=== PATIENT | female | born 1940 | race African-American/Black ===

== ENCOUNTER 2017-03-13 05:30 | Emergency (ER) | payer MEDICARE ==
[2017-03-13] MEDS ORDERED: SODIUM CHLORIDE 0.9% (FLUSH) 10 ML SYG IV PRN (05:34)
[2017-03-13] MEDS ORDERED: ONDANSETRON INJ 4 MG/2 ML VIAL IV ONE (05:34)
--- NOTE | 2017-03-13 06:00 | RAD ---
Clinical History : desaturation , MAIN Exam : Portable AP view of the chest 03/13/2017 5:34 AM CDT Comparisons : none Findings : There is a tracheostomy with its tip at the T2 level. There is mild peribronchial thickening throughout the lungs bilaterally with left perihilar airspace opacity. There are defibrillator pads overlying the right chest. The heart is normal in size. The mediastinal contours are normal in appearance. The thoracic spine is age appropriate. The shoulders are unremarkable. Limited evaluation of the upper abdomen demonstrates no gross abnormalities. Impression: 1. Peribronchial thickening with left perihilar airspace opacity, likely representing infectious process. 2. Tracheostomy. Electronically signed by: Kailey Maurer MD 03/13/2017 6:00 AM CDT
--- NOTE | 2017-03-13 06:11 | ED.PDOC ---
History of Present Illness - General Chief Complaint: Respiratory Problem Stated Complaint: DECREASED O2 SATS Time Seen by Provider: 03/13/17 05:33 Source: RN notes reviewed, Vital Signs reviewed, EMS Exam Limitations: clinical condition - History of Present Illness Initial Comments: Patient is a 76 y/o female trach patient on assisted ventilation. The staff at the correction turned her over and Patient desatted. They immediately started CPR without checking for a pulse. When EMS arrived, they noted that the AED was saying do not touch patient, however they were doing CPR. EMS advised them to stop. During their assessment, Patient had NSR on their rhythm strip and her staturations were in the 90s. The brought her to the ED for further evaluation. When Patient arrived, she was suctioned and she vomited. Timing/Duration: 1/2 hour Severity: mild Improving Factors: nothing Worsening Factors: nothing Associated Symptoms: other - unable to assess due to Patient being on the vent and does not speak. Allergies/Adverse Reactions: Allergies Aspirin Adverse Reaction (Verified 03/13/17 05:42) Iodine Adverse Reaction (Verified 03/13/17 05:42) Review of Systems - Review of Systems Unable to Obtain Due To: clinical condition Past Medical History (General) - Patient Medical History Hx of COPD: Yes Hx Congestive Heart Failure: Yes Hx Hypertension: Yes - Vaccination History Hx Tetanus, Diphtheria Vaccination: - UNK Hx Influenza Vaccination: - UNK Hx Pneumococcal Vaccination: - UNK - Social History Hx Alcohol Use: - UNK Hx Substance Use: - UNK - Activities of Daily Living Group Home/Assisted Living (if applicable):: [facility] - Female History Patient is a Female of Child Bearing Age (10 -59 yrs old): No Family Medical History - Family History Mother Family History: Unknown Physical Exam - Physical Exam General Appearance: Alert, Comfortable, No apparent distress Eye Exam: bilateral normal Respiratory: lungs clear, normal breath sounds, other - tracheostomy, on ventilator Cardiovascular/Chest: regular rate, rhythm, no edema, no gallop, no murmur Gastrointestinal/Abdominal: normal bowel sounds, non tender, soft, no organomegaly Neurologic: other - Patient does not respond to questions or instructions, however her eyes are open and she is looking around. This is Patient's baseline. Skin Exam: warm/dry Progress - Progress Progress: 03/13/17 06:33 As soon as x-ray was read as pneumonia, I called [facility] (at 0632) to try and get transfer since it is close to shift change. I was told to call back in 30 minutes. Therefore, I will start meropenem once her creatinine is back and blood cultures have been drawn. 03/13/17 06:46 I discussed case with Dr. Jose Ball, ED physician at [facility] after elevated d- dimer was received. We discussed the fact that her d-dimer was most likely elevated because of the pneumonia and that since she is stable, she should be able to be treated in the correction. - Results/Orders Results/Orders: 03/13/17 03/13/17 03/13/17 05:42 06:07 06:16 Temperature 97.4 F L Pulse Rate [ 83 MONITOR] Respiratory 20 20 16 Rate Respiratory 14 Rate [Volume Control Data] Blood Pressure 135/45 [Left Arm] O2 Sat by Pulse 95 96 Oximetry 03/13/17 06:47 Temperature Pulse Rate [ 86 MONITOR] Respiratory 16 Rate Respiratory Rate [Volume Control Data] Blood Pressure 130/61 [Left Arm] O2 Sat by Pulse 99 Oximetry 03/13/17 05:34 IV Care:Saline Lock per Protoc QSHIFT Telemetry .ONCE Sodium Chloride 0.9% (Flush) [Saline Flush Syringe] 10 ml IV PRN PRN EKG Assessment ONCE EKG Stat Pulse Ox Stat Pulse Oximetry Assessment DAILY 03/13/17 06:00 Capnography .ONCE Mechanical Ventilation DAILY 03/13/17 06:01 Oxygen Delivery Assessment: QSHIFT 03/13/17 06:25 BLOOD CULTURE Stat 03/13/17 06:53 BOLUS Sodium Chloride 0.9% 1000ML [Ns 1000 ml] 1,000 ml IVS ONCE Meropenem [Merrem] 1 gm Sodium Chl 0.9% 50Ml Min-Bag+ [NS 50ml MINI-BAG+] 50 ml IVPB ONCE Laboratory Results WBC 8.7 K/mm3 (4.8-10.8) 03/13/17 06:05 RBC 4.08 M/mm3 (4.20-5.40) L 03/13/17 06:05 Hgb 9.8 gm/dL (12.0-16.0) L 03/13/17 06:05 Hct 31.0 % (36.0-47.0) L 03/13/17 06:05 MCV 75.9 fl (81.0-99.0) L 03/13/17 06:05 MCH 24.0 pg (27.0-31.0) L 03/13/17 06:05 MCHC 31.7 g/dL (33.0-37.0) L 03/13/17 06:05 RDW 21.2 % (11.5-14.5) H 03/13/17 06:05 Plt Count 296 K/mm3 (130-400) 03/13/17 06:05 MPV 9.8 fl (7.40-10.4) 03/13/17 06:05 Absolute Neuts (auto) Not Reportable 03/13/17 06:05 Absolute Lymphs (auto) Not Reportable 03/13/17 06:05 Absolute Monos (auto) Not Reportable 03/13/17 06:05 Absolute Eos (auto) Not Reportable 03/13/17 06:05 Neutrophils % Not Reportable 03/13/17 06:05 Neutrophils % (Manual) 70.0 % 03/13/17 06:05 Lymphocytes % Not Reportable 03/13/17 06:05 Lymphocytes % (Manual) 23.0 % 03/13/17 06:05 Monocytes % Not Reportable 03/13/17 06:05 Monocytes % (Manual) 5.0 % 03/13/17 06:05 Eosinophils % Not Reportable 03/13/17 06:05 Basophils % Not Reportable 03/13/17 06:05 Eosinophils 2.0 % 03/13/17 06:05 Platelet Estimate Normal (NORMAL) 03/13/17 06:05 Normal RBC Morphology 3+aniso 2+hypochromia 03/13/17 06:05 Normal RBC Morphology 3+aniso 2+hypochromia 03/13/17 06:05 PT 12.8 SECONDS (9.4-12.5) H 03/13/17 06:05 INR 1.130 03/13/17 06:05 PTT (SP) 30.1 SECONDS (25.1-36.5) 03/13/17 06:05 D-Dimer, Quantitative 2509 ng/mL (0-230) H* 03/13/17 06:05 Sodium 138 mmol/L (135-145) 03/13/17 06:05 Potassium 4.6 mmol/L (3.6-5.0) 03/13/17 06:05 Chloride 101 mmol/L (101-111) 03/13/17 06:05 Carbon Dioxide 28 mmol/L (21-31) 03/13/17 06:05 Anion Gap 13.6 (12-18) 03/13/17 06:05 BUN 29 mg/dL (7-18) H 03/13/17 06:05 Creatinine 0.59 mg/dL (0.6-1.3) L 03/13/17 06:05 BUN/Creatinine Ratio 49.2 (10-20) H 03/13/17 06:05 Random Glucose 145 mg/dL (70-105) H 03/13/17 06:05 Serum Osmolality 284.1 mOsm/L (275-295) 03/13/17 06:05 Lactic Acid 2.5 mmol/L (0.5-2.2) H* 03/13/17 06:05 Calcium 10.7 mg/dL (8.4-10.2) H 03/13/17 06:05 Magnesium 2.1 mg/dL (1.8-2.5) 03/13/17 06:05 Total Bilirubin 0.2 mg/dL (0.2-1.0) 03/13/17 06:05 Direct Bilirubin 0.2 mg/dL (0-0.2) 03/13/17 06:05 Indirect Bilirubin 0.0 mg/dL (0.2-0.8) L 03/13/17 06:05 AST 45 IU/L (10-42) H 03/13/17 06:05 ALT 38 IU/L (10-60) 03/13/17 06:05 Alkaline Phosphatase 131 IU/L (42-121) H 03/13/17 06:05 Creatine Kinase 171 IU/L (26-140) H 03/13/17 06:05 CK-MB (CK-2) 7.7 ng/mL (0.0-4.4) H* 03/13/17 06:05 CK-MB (CK-2) % 4.50 % (0.0-4.3) H 03/13/17 06:05 Troponin I 0.03 ng/mL (0.01-0.05) 03/13/17 06:05 B-Natriuretic Peptide 308.0 pg/ml (0-100) H* 03/13/17 06:05 Serum Total Protein 8.3 gm/dL (6.4-8.2) H 03/13/17 06:05 Albumin 3.0 g/dl (3.2-5.5) L 03/13/17 06:05 - EKG/XRAY/CT EKG: Sinus - 87bpm, no ST T wave changes Comments: NML axis, short [place] interval, no comparison: NML EKG XRAY: chest - Peribronchial thickening, perihilar airspace opacity--infectious process Departure - Departure Disposition: Discharge to Home or Self Care Departure Forms: ED Discharge - Pt. Copy, Patient Portal Self Enrollment Referrals: REJI TAMAYO [Primary Care Provider] - 1-2 Weeks
[2017-03-13] MEDS ORDERED: MEROPENEM 1 GM in SODIUM CHL 0.9% 50ML MIN-BAG+ 50 ML IVPB ONE (06:53)
[2017-03-13] MEDS ORDERED: SODIUM CHLORIDE 0.9% 1000ML 1,000 ML IVS ONE (06:53)
[2017-03-13] MEDS ORDERED: MEROPENEM 500 MG VIAL IVPB ONE ×2 (06:54→07:18)
[2017-03-13] MEDS ORDERED: SODIUM CHL 0.9% 50ML MIN-BAG+ 0 ML IVPB ONE (07:18)
[2017-03-13] MEDS ORDERED: HEPARIN SODIUM (PORCINE) 5,000 U/ML VIAL IV ONE (07:50)
[2017-03-13] MEDS ORDERED: CLOPIDOGREL 75 MG TAB GT ONE (07:52)
[2017-03-13] MEDS ORDERED: SODIUM CHLORIDE 0.9% 50ML 50 ML ONE (08:06)
[2017-03-13 08:21] VITALS: TEMP 98.1; O2SAT 100
[2017-03-13] MEDS ORDERED: AMIODARONE HCL 200 MG TAB PO ONE ×2 (08:25→09:05)
[2017-03-13 11:37] VITALS: BP 154/100
== END 2017-03-13 09:35 | disposition short-term general hospital (02) ==
LOC: ER 05:30
DX: I11.0 Hypertensive heart disease with heart failure (principal); I46.9 Cardiac arrest, cause unspecified; I50.9 Heart failure, unspecified; J44.9 Chronic obstructive pulmonary disease, unspecified; Z86.74 Personal history of sudden cardiac arrest; Z99.11 Dependence on respirator [ventilator] status; R91.8 Other nonspecific abnormal finding of lung field; Z88.6 Allergy status to analgesic agent; Z88.8 Allergy status to other drugs, medicaments and biological substances; R79.89 Other specified abnormal findings of blood chemistry; Z79.02 Long term (current) use of antithrombotics/antiplatelets
CPT/HCPCS: 36415; 71010; 80048; 80076; 82550; 82553; 83605; 83880; 84484; 85025; 85379; 85610; 85730; 87040; 93005; 94002; 94760; 94770; A4216; J1644; J2185; J2405; J7030

== ENCOUNTER 2017-08-17 11:48 | Emergency (ER) | payer MEDICARE ==
[2017-08-17] MEDS ORDERED: IPRATROPIUM/ALBUTEROL 3 ML VIAL NEB ONE (11:59)
--- NOTE | 2017-08-17 12:22 | RAD ---
EXAM DESCRIPTION: Chest,1 View CLINICAL HISTORY: rales, wheezes hypothermia COMPARISON: March 13, 2017 IMPRESSION: Single AP portable upright view of the chest shows enlargement of the cardiac silhouette without pulmonary vascular congestion. The patient is rotated on this exam and right arm overlies a portion of the right upper chest. Tracheostomy tube appears in good positioning with tip at the level of the clavicular heads. There is a new interstitial alveolar infiltrate in left perihilar to upper lobe region consistent with pneumonia versus aspiration. Continued follow-up until resolution is recommended to exclude neoplastic process. Also suspect infiltrate in the right lower lobe retrocardiac region although this could represent overlapping densities related to rotation of the patient. Electronically signed by: James Mcdonald MD 08/17/2017 12:21 PM CDT
[2017-08-17] MEDS ORDERED: SODIUM CHLORIDE 0.9% 1000ML 1,000 ML IVS ONE (12:51)
[2017-08-17] MEDS ORDERED: methylPREDNISolone SODIUM SUC 125 MG/2 ML VIAL IV ONE (12:57)
[2017-08-17] MEDS ORDERED: MEROPENEM 1 GM in SODIUM CHL 0.9% 50ML MIN-BAG+ 50 ML IVPB ONE (12:58)
[2017-08-17 13:32] VITALS: TEMP 92.2; O2SAT 100
[2017-08-17] MEDS ORDERED: MEROPENEM 1 GM VIAL IVPB ONE (13:51)
[2017-08-17] MEDS ORDERED: SODIUM CHL 0.9% 50ML MIN-BAG+ 50 ML IVPB ONE (13:51)
[2017-08-17] MEDS ORDERED: VANCOMYCIN HCL INJ 1,000 MG in SODIUM CHLORIDE 0.9% 250ML 250 ML IVPB ONE (14:58)
--- NOTE | 2017-08-17 15:01 | ED.PDOC ---
History of Present Illness - General Stated Complaint: low core temp Time Seen by Provider: 08/17/17 11:57 Source: EMS notes reviewed, care home records Exam Limitations: clinical condition, physical impairment - History of Present Illness Initial Comments: The patient is a 77-year-old -[place] female presenting from the long- term ventilator care facility. The patient apparently has a history of anoxic brain injury and is ventilator dependent. She was sent here from the care home secondary to hypothermia with a rectal temperature of around 92F which was confirmed here. The patient did have an x-ray there this morning as well showed a left upper lung pneumonia that is new. She is not requiring any change in her baseline ventilator settings at this time. Blood pressures have been running a little lower than normalfor the last day or 2 as well. The patient is unable to communicate, so additional symptoms are not known. Timing/Duration: unsure Allergies/Adverse Reactions: Allergies Aspirin Adverse Reaction (Verified 03/13/17 05:42) Iodine Adverse Reaction (Verified 03/13/17 05:42) Home Medications: Ambulatory Orders ALPRAZolam [Xanax] 0.25 mg GT DAILY PRN 03/13/17 Acetaminophen [Tylenol] 650 mg GT Q6HR PRN 03/13/17 Amiodarone HCl [Pacerone] 300 mg GT DAILY 03/13/17 Ascorbic Acid [C-500] 500 mg GT DAILY 03/13/17 Chlorhexidine Gluconate (Mouth [Chlorhexidine Gluconate] 30 ml MT BID 03/13/17 Clopidogrel Bisulfate 75 mg GT BIW 03/13/17 Cyanocobalamin [Vitamin B-12 Cr] 1,000 mcg GT DAILY 03/13/17 Ferrous Sulfate 325 mg PO DAILY 03/13/17 Folic Acid 1 mg GT DAILY 03/13/17 Ipratropium/Albuterol [Duoneb] 3 ml NEB Q6HR PRN 03/13/17 Nutritional Supplements [Arginaid] 1 mia GT BID 03/13/17 amLODIPine BESYLATE [Norvasc] 7.5 mg GT DAILY 03/13/17 guaiFENesin 100 MG/5 ML [Robitussin] 15 ml GT Q4HR 03/13/17 Review of Systems - Review of Systems Unable to Obtain Due To: condition, intubated, clinical condition Past Medical History (General) - Patient Medical History Hx of COPD: Yes Hx Congestive Heart Failure: Yes Hx Hypertension: Yes Hx MRSA: Yes - coccyx wound - Vaccination History Hx Tetanus, Diphtheria Vaccination: - UNK Hx Influenza Vaccination: - UNK Hx Pneumococcal Vaccination: - UNK - Social History Hx Alcohol Use: - UNK Hx Substance Use: - UNK Family Medical History - Family History Mother Family History: Unknown Physical Exam - Physical Exam General Appearance: Alert - the patient is looking around but noncommunicative, No apparent distress Eye Exam: bilateral normal Ears, Nose, Throat: normal ENT inspection - ucous membranes are mildly dry Neck: other - the patient seems to be able to look ahead and towards the right. Tracheostomy is in place. Respiratory: no accessory muscle use, rales, rhonchi, wheezing Cardiovascular/Chest: normal peripheral pulses, regular rate, rhythm, no edema Peripheral Pulses: radial,right: 2+, radial,left: 2+, dorsalis pedis,right: 1+, dorsalis pedis,left: 1+ Gastrointestinal/Abdominal: soft - G-tube is in place. Rectal Exam: other - Vasquez catheter is in place. The patient has a healing sacral ulcer. Extremity: other - race chronic pedal edema. The patient does not appear to be able to move her extremities. She has flexion contractures at her elbows. She has flexion contractures at her wrist. Neurologic: alert, other - difficult to assess further secondary to her chronic condition Skin Exam: normal color Comments: Vital Signs - 24 hr 08/17/17 08/17/17 08/17/17 12:00 12:30 12:35 Temperature 92.2 F L Pulse Rate 69 Pulse Rate [ 72 67 monitor] Respiratory 18 18 16 Rate Respiratory 16 Rate [Volume Control Data] Blood Pressure 130/67 105/66 [right leg] O2 Sat by Pulse 100 100 100 Oximetry 08/17/17 12:58 Temperature Pulse Rate Pulse Rate [ 66 monitor] Respiratory 18 Rate Respiratory Rate [Volume Control Data] Blood Pressure 209/71 [right leg] O2 Sat by Pulse 100 Oximetry the 209/71 is incorrect. That is 109/71. Repeat rectal temperature is 93.6. Progress - Progress Progress: 08/17/17 15:04 the patient is a 77-year-old -[place] female presenting with hypothermia and a left upper lobe pneumonia. Blood pressures are lower than normal. This does appear to be sepsis. Blood and sputum cultures have been performed. The patient has received a dose of meropenem and will receive a dose of vancomycin. She has received a liter of IV fluids. Warming blanket is being used and her temperature is slowly rising. The patient will be transferred for ICU care. The patient did also receive a dose of Solu-Medrol IV. 08/17/17 15:06 critical care time spent is 40 minutes on not otherwise billable procedures, as well as for coordination of care. - Results/Orders Results/Orders: sputum and blood cultures have been performed. Laboratory Results - last 24 hr 08/17/17 08/17/17 08/17/17 12:15 12:15 12:15 WBC 8.4 RBC 3.34 L Hgb 7.5 L* Hct 24.2 L MCV 72.3 L MCH 22.4 L MCHC 30.8 L RDW 22.2 H Plt Count 158 MPV 8.5 Absolute Neuts (auto) 6.30 Absolute Lymphs (auto) 1.20 Absolute Monos (auto) 0.40 Absolute Eos (auto) 0.40 Absolute Basos (auto) 0.00 Neutrophils % 75.7 Lymphocytes % 14.4 L Monocytes % 5.3 Eosinophils % 4.4 Basophils % 0.2 PT 14.5 H INR 1.290 PTT (SP) 51.1 H Sodium 139 Potassium 4.6 Chloride 106 Carbon Dioxide 26 Anion Gap 11.6 L BUN 41 H Creatinine 0.55 L BUN/Creatinine Ratio 74.5 H Random Glucose 95 Serum Osmolality 287.5 Lactic Acid Calcium 10.4 H Total Bilirubin 0.3 AST 30 ALT 30 Alkaline Phosphatase 151 H Creatine Kinase 205 H* CK-MB (CK-2) 17.5 H* CK-MB (CK-2) % 8.54 H Troponin I 0.03 B-Natriuretic Peptide 276.0 H* Serum Total Protein 8.0 Albumin 2.8 L Globulin 5.2 H Albumin/Globulin Ratio 0.5 L TSH 2.91 Urine Color Urine Appearance Urine pH Ur Specific [place]cliffe Urine Protein Urine Glucose (UA) Urine Ketones Urine Blood Urine Nitrite Urine Bilirubin Urine Urobilinogen Ur Leukocyte Esterase Urine RBC Urine WBC Ur Epithelial Cells Triple Phos Crystals Amorphous Sediment Urine Bacteria 08/17/17 08/17/17 12:15 13:50 WBC RBC Hgb Hct MCV MCH MCHC RDW Plt Count MPV Absolute Neuts (auto) Absolute Lymphs (auto) Absolute Monos (auto) Absolute Eos (auto) Absolute Basos (auto) Neutrophils % Lymphocytes % Monocytes % Eosinophils % Basophils % PT INR PTT (SP) Sodium Potassium Chloride Carbon Dioxide Anion Gap BUN Creatinine BUN/Creatinine Ratio Random Glucose Serum Osmolality Lactic Acid 1.1 Calcium Total Bilirubin AST ALT Alkaline Phosphatase Creatine Kinase CK-MB (CK-2) CK-MB (CK-2) % Troponin I B-Natriuretic Peptide Serum Total Protein Albumin Globulin Albumin/Globulin Ratio TSH Urine Color Yellow Urine Appearance Cloudy Urine pH >= 9.0 H* Ur Specific [place]cliffe 1.010 Urine Protein 30 Urine Glucose (UA) Negative Urine Ketones Negative Urine Blood Small H Urine Nitrite Negative Urine Bilirubin Negative Urine Urobilinogen 0.2 Ur Leukocyte Esterase Large H Urine RBC 0-1 Urine WBC 1-3 Ur Epithelial Cells 3-5 Triple Phos Crystals 4+ Amorphous Sediment 4+ Urine Bacteria 2+ H Departure - Departure Clinical Impression: Ventilator dependence, assisted-acquired pneumonia Sepsis Qualifiers: Sepsis type: sepsis due to unspecified organism Qualified Code(s): A41.9 - Sepsis, unspecified organism Hypothermia Qualifiers: Encounter type: initial encounter Qualified Code(s): T68.XXXA - Hypothermia, initial encounter Disposition: Transfer to Hospital Referrals: REJI TAMAYO [Primary Care Provider] - 1-2 Weeks Home Medications: Ambulatory Orders ALPRAZolam [Xanax] 0.25 mg GT DAILY PRN 03/13/17 Acetaminophen [Tylenol] 650 mg GT Q6HR PRN 03/13/17 Amiodarone HCl [Pacerone] 300 mg GT DAILY 03/13/17 Ascorbic Acid [C-500] 500 mg GT DAILY 03/13/17 Chlorhexidine Gluconate (Mouth [Chlorhexidine Gluconate] 30 ml MT BID 03/13/17 Clopidogrel Bisulfate 75 mg GT BIW 03/13/17 Cyanocobalamin [Vitamin B-12 Cr] 1,000 mcg GT DAILY 03/13/17 Ferrous Sulfate 325 mg PO DAILY 03/13/17 Folic Acid 1 mg GT DAILY 03/13/17 Ipratropium/Albuterol [Duoneb] 3 ml NEB Q6HR PRN 03/13/17 Nutritional Supplements [Arginaid] 1 mia GT BID 03/13/17 amLODIPine BESYLATE [Norvasc] 7.5 mg GT DAILY 03/13/17 guaiFENesin 100 MG/5 ML [Robitussin] 15 ml GT Q4HR 03/13/17 Transfer to Outside Facility - Transfer Information Accepting Provider:: dr jay jay brandt Accepting Facility: [facility] Reason for Transfer: ICU
[2017-08-17 15:25] VITALS: BP 97/59
== END 2017-08-17 15:45 | disposition short-term general hospital (02) ==
LOC: ER 11:48
DX: A41.9 Sepsis, unspecified organism (principal); J18.9 Pneumonia, unspecified organism; Y95 Nosocomial condition; T68.XXXA Hypothermia, initial encounter; Z99.11 Dependence on respirator [ventilator] status; Z93.1 Gastrostomy status; I11.0 Hypertensive heart disease with heart failure; I50.9 Heart failure, unspecified; J44.9 Chronic obstructive pulmonary disease, unspecified; L89.159 Pressure ulcer of sacral region, unspecified stage; Z88.6 Allergy status to analgesic agent; Z88.8 Allergy status to other drugs, medicaments and biological substances; Z79.899 Other long term (current) drug therapy
CPT/HCPCS: 71010; 80053; 81001; 82550; 82553; 83605; 83880; 84443; 84484; 85025; 85610; 85730; 87040; 87070; 87086; 94002; 94640; J2185; J2930; J7030; J7050; J7620